=== PATIENT | female | born 1955 | race Caucasian/White ===

== ENCOUNTER 2024-03-15 06:46 | Emergency (ER) | payer MEDICARE, OTHER, SELFPAY ==
[2024-03-15 06:48] VITALS: BP 106/66
[2024-03-15 08:00] VITALS: BP 103/59
[2024-03-15 08:16] LABS: % Basophils 0.4 % (0-2); % Eosinophils 0.6 % (0-6); % Immature Granulocytes 0.7 % (0-0.5); % Lymphocytes 7.8 % (20.5-51.1); % Monocytes 5.9 % (1.7-9.3); % Neutrophils 84.6 % (42.2-75.2); Absolute Basophils 0.1 10^3/uL (0-0.2); Absolute Eosinophils 0.1 10^3/uL (0-0.7); Absolute Immature Granulocytes 0.1 10^3/uL (0-0.05); Absolute Lymphocytes 0.9 10^3/uL (1.2-3.4); Absolute Monocytes 0.7 10^3/uL (0.1-0.6); Absolute Neutrophils 10.3 10^3/uL (1.4-6.5); Hematocrit 34.4 % (37.0-47.0); Hemoglobin 11.7 g/dL (12.0-16.0); Mean Corpuscular Volume 85.1 fL (81.0-99.0); Mean Platelet Volume 9.8 fL (7.4-10.4); Nucleated Red Blood Cells % 0 %; Platelet Count 359 10^3/uL (130-400); Red Blood Cell Count 4.04 10^6/uL (4.20-5.40); Red Cell Dist. Width 13.6 % (11.5-14.5); White Blood Cell Count 12.1 10^3/uL (4.8-10.8)
--- NOTE | 2024-03-15 08:21 | ED.GENMED ---
History of Present Illness
General
Chief Complaint: Breathing Problem
Time Seen by Provider: 03/15/24 07:27
History of Present Illness
History of Present Illness:
69-year-old female without significant past medical history presenting to the emergency department for persistent cough. Patient reports 2 weeks ago she contracted an upper respiratory virus. She was seen by her primary care doctor, tested
negative for COVID and flu and started a steroid pack. At that time she was having cough and fever, fatigue. Reports that the fever resolved, however in the past week since the infection, has had persistent cough and fatigue. She notes in the
past few days she has been coming increasingly dyspneic, felt that she is wheezing. Denies any additional fevers. Denies chest pain. Denies abdominal pain or GI symptoms. Denies additional acute medical complaints
Past History
Past History
ED Past Medical History: Other (Migraines); Negative Asthma, CAD, HTN or Hypercholesterolemia
ED Past Surgical History: Gynecological and Orthopedic
Social History
Tobacco: Non-smoker
Alcohol: Occasional
Drug: None
Personal:
Employment: Employed
Family History
Family History: Early CAD and Other
Phy Exam
Physical Exam
Physical Exam:
General: Well-appearing, no clinical signs of dehydration, nontoxic and in no acute distress
HEENT: protecting airway
Neck: appears supple
CV: Normal heart rate, regular rhythm, no evidence of cyanosis
Resp: No accessory muscle use, no increased work of breathing, lungs clear to auscultation bilaterally
Abd: Soft and non-distended, no tenderness to palpation
Extremities: No deformities, no swelling
Neuro: alert, no focal neurologic deficit
: deferred
Rectal: deferred
Psych: Normal affect
Skin: Intact
Scores
Heart Failure Risk
Heart Failure Risk Score: Not Applicable
Course
Orders/Labs/Results
Orders:
Orders
03/15/24 07:56
CR Chest - 2 Views Urgent
Comment:
Reason For Exam: SOB, cough x 2 weeks
03/15/24 08:00
COVID-19 Antigen Urgent
Source: Nasal Swab
Complete Blood Count/With Diff Urgent
Comprehensive Metabolic Panel Urgent
Influenza A+B Rapid Molecular Urgent
LENIN Source: Nasal Swab
Specimen Description:
03/15/24 09:39
Doxycycline [Vibramycin] 100 mg PO NOW STA
Abnormal Lab Results
03/15/24
08:00
WBC 12.1 H 10^3/uL
(4.8-10.8)
RBC 4.04 L 10^6/uL
(4.20-5.40)
Hgb 11.7 L g/dL
(12.0-16.0)
Hct 34.4 L %
(37.0-47.0)
Abs Immat Gran (auto) 0.1 H 10^3/uL
(0-0.05)
Absolute Neuts (auto) 10.3 H 10^3/uL
(1.4-6.5)
Absolute Lymphs (auto) 0.9 L 10^3/uL
(1.2-3.4)
Absolute Monos (auto) 0.7 H 10^3/uL
(0.1-0.6)
Immature Gran % 0.7 H %
(0-0.5)
Neutrophils % 84.6 H %
(42.2-75.2)
Lymphocytes % 7.8 L %
(20.5-51.1)
Glucose 103 H mg/dl
(70-99)
03/15/24 08:00
03/15/24 08:00
Vital Signs
Initial and Last Documented VS:
Initial Vital Signs
Temp Pulse Resp BP Pulse Ox
98.2 F 100 24 106/66 96
03/15/24 06:48 03/15/24 06:48 03/15/24 06:48 03/15/24 06:48 03/15/24 06:48
Last Documented Vital Signs
Temp Pulse Resp BP Pulse Ox
98.5 F 78 24 103/59 95
03/15/24 08:23 03/15/24 08:45 03/15/24 08:45 03/15/24 08:23 03/15/24 08:45
MDM/Problems Addressed
MDM/Problems Addressed:
69-year-old female presenting to the emergency department for persistent cough with shortness of breath. Vital signs on arrival are normal.
On exam, patient is resting comfortably, no acute respiratory distress. Overall benign examination. Suspect likely residual postviral cough versus superimposed pneumonia versus additional viral infection. Will plan for laboratory analysis, chest
x-ray imaging, viral swabs.
09:40 -chest x-ray is consistent with a lingula pneumonia. Blood work shows mild leukocytosis, consistent with infection. Patient otherwise remained stable from respiratory standpoint. Will start patient on antibiotics. Otherwise feel stable for
discharge with close outpatient primary care follow-up. Strict return precautions communicated and patient verbalized understanding.
*Critical Care Note
Total Time (30-74mins, 75-104mins- exclusive of procedures): Not Applicable
ED Attending Note
-
Portions of this chart may have been created with voice recognition software.� Occasional wrong word or��sound alike� substitutions may have occurred due to the inherent limitations of voice recognition software.
Discharge Plan
Departure
Patient Disposition: Home (Routine Discharge)
Date of Disposition: 03/15/24
Time of Disposition: 09:40
Patient with high blood pressure during this ER visit?: No
Condition: Good
Discharge Problem:
Lingular pneumonia
Instructions: Pneumonia in adults, Shortness of Breath (Dyspnea) (DC)
Prescriptions:
New
doxycycline hyclate 100 mg capsule
100 mg PO BID 7 Days Qty: 14 0RF
benzonatate 100 mg capsule
100 mg PO BID PRN (Reason: Cough) 5 Days Qty: 10 0RF
No Action
therapeutic multivitamin Tablet
1 tab PO DAILY
ibuprofen 200 mg Tablet
400 mg PO Q6H PRN (Reason: mild pain)
rosuvastatin 10 mg Tablet
10 mg PO HS
acetaminophen [Tylenol] 325 mg Tablet
650 mg PO Q4H PRN (Reason: pain)
Referrals:
Zulma Murphy PA-C [Family Provider] -
Activity Restrictions/Additional Instructions:
You were seen in the emergency department for cough and shortness of breath
You were found to have a right-sided pneumonia. You were started on antibiotics. Please take as prescribed.
Please follow-up closely with your primary care physician.
Return to the emergency department for any worsening of your symptoms, or any development of chest pain, difficulty breathing, abdominal pain with persistent vomiting and inability to tolerate food or liquid by mouth (concern for dehydration),
weakness, headache or confusion, fever greater than 100.4, or any additional symptoms that are concerning to you.
Thank you for choosing [facility].
Interventions
Interventions:
*Risk Screen - Suicide Last Done: 03/15/24 06:48
*General Assessment Last Done: 03/15/24 08:23
*Neglect/Abuse Screening Last Done: 03/15/24 06:48
ED- Fall Risk Assessment Last Done: 03/15/24 08:23
*ED COVID-19 Vaccine History Last Done: 03/15/24 08:23
*Nursing Disposition Last Done: 03/15/24 09:59
ED- Cardiac Assessment Last Done: 03/15/24 08:23
ED- Pulmonary Assessment Last Done: 03/15/24 08:23
Discharge Date and Time
Discharge Date/Time: 03/15/24 10:04
Print Language: YI
[2024-03-15 08:23] VITALS: BP 103/59
[2024-03-15 08:29] LABS: ALT (SGPT) 17 U/L (0-35); AST (SGOT) 19 U/L (14-36); Albumin 3.9 g/dl (3.5-5.0); Alkaline Phosphatase 87 U/L (38-126); Blood Urea Nitrogen 16 mg/dl (7-17); Calcium 9.2 mg/dl (8.4-10.2); Carbon Dioxide 23 mmol/L (22-30); Chloride 103 mmol/L (98-107); Glucose 103 mg/dl (70-99); Potassium 4.2 mmol/L (3.5-5.1); Sodium 138 mmol/L (135-145); Total Bilirubin 0.7 mg/dl (0.2-1.3); Total Protein 6.6 g/dl (6.3-8.2); eGFR > 60.00
[2024-03-15 08:31] LABS: COVID-19 Antigen Negative (Negative)
[2024-03-15] MEDS: VIBRAMYCIN 100 MG PO (10:00)
== END 2024-03-15 10:04 | disposition home or self-care (01) ==
LOC: EMR 06:46
PROVIDERS: EMERGENCY PHYSICIAN Student in an Organized Health Care Education/Training Program; FAMILY PHYSICIAN Physician Assistant Medical
DX: J18.9 Pneumonia, unspecified organism (principal)
CPT/HCPCS: 99284; 71046; 80053; 85025; 87502; 87811

== ENCOUNTER 2024-03-20 10:33 | Emergency (ER) | payer MEDICARE, OTHER, SELFPAY ==
[2024-03-20 10:37] VITALS: BP 100/71
--- NOTE | 2024-03-20 11:47 | ED.GENMED ---
History of Present Illness
General
Chief Complaint: Breathing Problem
Time Seen by Provider: 03/20/24 11:09
History of Present Illness
History of Present Illness:
Patient is a 69-year-old woman with history of hypertension, hyperlipidemia, diverticulitis complicated with an abscess presenting to the emergency department with shortness of breath. Per chart review patient was seen in the emergency department
on 1023 and diagnosed with pneumonia. Patient states that initially she did get better however 2 days ago developed worsening symptoms with shortness of breath cough muscle aches as well as some lower back pain and abdominal pain. She also states
she has been eating a little less. No nausea vomiting. No changes in her bowel movement. She did take her doxycycline as prescribed. She does state that last time she started develop lower back pain but the belly pain it was her diverticulitis.
No fevers or chills. No leg swelling hemoptysis long car rides or plane rides or history of blood clot.
Past History
Past History
ED Past Medical History: Other (Migraines); Negative Asthma, CAD, HTN or Hypercholesterolemia
ED Past Surgical History: Gynecological and Orthopedic
Social History
Tobacco: Non-smoker
Alcohol: Occasional
Drug: None
Personal:
Employment: Employed
Family History
Family History: Early CAD and Other
Phy Exam
Physical Exam
Physical Exam:
GENERAL: in no acute distress
HEENT: normocephalic, extraocular movements intact, moist oral mucosa
NECK: normal inspection
RESPIRATORY: no respiratory distress, clear to auscultation bilaterally
CARDIOVASCULAR: regular rate and rhythm
ABDOMEN/: soft, non-distended, mild left-sided abdominal tenderness, no rebound or guarding
EXTREMITIES: non-tender, no edema/swelling
NEUROLOGIC: awake and alert, moves all extremities
SKIN: warm
Scores
Heart Failure Risk
Heart Failure Risk Score: Not Applicable
Course
Orders/Labs/Results
Orders:
Orders
03/20/24 10:40
Electrocardiogram (*1) Urgent
Reason for Study: Other
Other Reason for Exam: left arm pain
EKG- Treatment ONCE
03/20/24 11:35
CT Abd/pelvis W Iv Cont Urgent
Comment:
Reason For Exam: llq pain, hx diverticulitis with absces
CR Chest - 2 Views Urgent
Comment:
Reason For Exam: cough, sob
03/20/24 11:46
Complete Blood Count/With Diff Urgent
Comprehensive Metabolic Panel Urgent
Abnormal Lab Results
03/20/24
11:46
RBC 4.03 L 10^6/uL
(4.20-5.40)
Hct 35.7 L %
(37.0-47.0)
Neutrophils % 75.8 H %
(42.2-75.2)
Lymphocytes % 15.7 L %
(20.5-51.1)
Glucose 139 H mg/dl
(70-99)
03/20/24 11:46
03/20/24 11:46
Vital Signs
Initial and Last Documented VS:
Initial Vital Signs
Temp Pulse Resp BP Pulse Ox
98.1 F 73 16 100/71 98
03/20/24 10:37 03/20/24 10:37 03/20/24 10:37 03/20/24 10:37 03/20/24 10:37
Last Documented Vital Signs
Temp Pulse Resp BP Pulse Ox
98.1 F 76 19 124/62 98
03/20/24 10:37 03/20/24 13:15 03/20/24 13:15 03/20/24 13:00 03/20/24 10:37
MDM/Problems Addressed
Differential Diagnosis Includes:
Patient is a 69-year-old woman with recent diagnosis of pneumonia presenting to the emergency department with worsening shortness of breath cough muscle aches as well as new onset lower back pain and left-sided abdominal pain. Vitals are
unremarkable and exam does show mild tenderness to the left side of the abdomen. Differential consists of pneumonia versus viral syndrome versus diverticulitis or metabolic derangement. Will check blood work chest x-ray. After shared decision
making we will obtain CT scan to evaluate for diverticulitis/any complications of that.
*Critical Care Note
Total Time (30-74mins, 75-104mins- exclusive of procedures): Not Applicable
Update Note
Update Note:
Blood work does show a resolving leuk cytosis. Chest x-ray per my interpretation with persistent pneumonia. It is not worsening which is reassuring. Given her symptoms we will add on cefpodoxime to help treat the pneumonia. CT scan of the
abdomen without diverticulitis. She does have some possibly mild proctitis on exam. Patient is asymptomatic at this time. She is following up with her PCP in a few days. Strict return precautions given. Will discharge at this time
ED Attending Note
-
Portions of this chart may have been created with voice recognition software.� Occasional wrong word or��sound alike� substitutions may have occurred due to the inherent limitations of voice recognition software.
Discharge Plan
Departure
Patient Disposition: Home (Routine Discharge)
Date of Disposition: 03/20/24
Time of Disposition: 14:37
Patient with high blood pressure during this ER visit?: No
Discharge Problem:
Pneumonia
Prescriptions:
New
cefpodoxime 200 mg tablet
200 mg PO BID 5 Days Qty: 10 0RF
No Action
therapeutic multivitamin Tablet
1 tab PO DAILY
ibuprofen 200 mg Tablet
400 mg PO Q6H PRN (Reason: mild pain)
rosuvastatin 10 mg Tablet
10 mg PO HS
acetaminophen [Tylenol] 325 mg Tablet
650 mg PO Q4H PRN (Reason: pain)
doxycycline hyclate 100 mg capsule
100 mg PO BID 7 Days Qty: 14 0RF
benzonatate 100 mg capsule
100 mg PO BID PRN (Reason: Cough) 5 Days Qty: 10 0RF
Referrals:
Zulma Murphy PA-C [Family Provider] -
Activity Restrictions/Additional Instructions:
You were seen in the Emergency Department today for shortness of breath. While you were here we performed blood work, which was reassuring. I did start you on antibiotic called cefpodoxime. Please take as prescribed. You may take Pepcid once a
day to help with the stomach.
We would like for you to follow up with your primary care physician for further evaluation. If you experience fever, worsening of your symptoms, or develop any other new or concerning symptoms, please return to the Emergency Department immediately.
Please see the attached sheet for additional information.
Interventions
Interventions:
*Risk Screen - Suicide Last Done: 03/20/24 10:37
*General Assessment Last Done: 03/20/24 11:08
*Neglect/Abuse Screening Last Done: 03/20/24 10:37
*ED COVID-19 Vaccine History Last Done: 03/20/24 11:08
ED- Cardiac Assessment Last Done: 03/20/24 11:08
ED- Pulmonary Assessment Last Done: 03/20/24 11:08
Discharge Date and Time
Print Language: SOMALI
[2024-03-20 11:54] LABS: % Basophils 0.4 % (0-2); % Eosinophils 0.8 % (0-6); % Immature Granulocytes 0.3 % (0-0.5); % Lymphocytes 15.7 % (20.5-51.1); % Neutrophils 75.8 % (42.2-75.2); Absolute Eosinophils 0.1 10^3/uL (0-0.7); Absolute Lymphocytes 1.2 10^3/uL (1.2-3.4); Absolute Monocytes 0.5 10^3/uL (0.1-0.6); Absolute Neutrophils 5.7 10^3/uL (1.4-6.5); Hematocrit 35.7 % (37.0-47.0); Hemoglobin 12.1 g/dL (12.0-16.0); Mean Corp Hgb Conc. 33.9 g/dL (33.0-37.0); Mean Corpuscular Volume 88.6 fL (81.0-99.0); Mean Platelet Volume 9.8 fL (7.4-10.4); Nucleated Red Blood Cells % 0 %; Platelet Count 381 10^3/uL (130-400); Red Blood Cell Count 4.03 10^6/uL (4.20-5.40); Red Cell Dist. Width 13.2 % (11.5-14.5); White Blood Cell Count 7.5 10^3/uL (4.8-10.8)
[2024-03-20 12:14] VITALS: BP 111/61
[2024-03-20 12:26] LABS: ALT (SGPT) 19 U/L (0-35); AST (SGOT) 22 U/L (14-36); Albumin 3.9 g/dl (3.5-5.0); Alkaline Phosphatase 75 U/L (38-126); Blood Urea Nitrogen 12 mg/dl (7-17); Calcium 10.2 mg/dl (8.4-10.2); Carbon Dioxide 27 mmol/L (22-30); Chloride 105 mmol/L (98-107); Glucose 139 mg/dl (70-99); Sodium 142 mmol/L (135-145); Total Bilirubin 0.4 mg/dl (0.2-1.3); Total Protein 6.8 g/dl (6.3-8.2); eGFR > 60.00
[2024-03-20 13:00] VITALS: BP 124/62
[2024-03-20 14:17] VITALS: BP 125/69
== END 2024-03-20 15:31 | disposition home or self-care (01) ==
LOC: EMR 10:33
PROVIDERS: EMERGENCY PHYSICIAN Student in an Organized Health Care Education/Training Program; FAMILY PHYSICIAN Physician Assistant Medical
DX: J18.9 Pneumonia, unspecified organism (principal); E78.5 Hyperlipidemia, unspecified; I10 Essential (primary) hypertension; Z87.19 Personal history of other diseases of the digestive system
CPT/HCPCS: 99285; 71046; 74177; 80053; 85025; 93005; Q9967

== ENCOUNTER → 2024-03-30 11:00 | Outpatient (REF) | payer MEDICARE, OTHER, SELFPAY | LOC: RAD 11:00 | PROVIDERS: ATTENDING PHYSICIAN Physician Assistant Medical | DX: J18.9 Pneumonia, unspecified organism (principal) | CPT/HCPCS: 71046 ==

== ENCOUNTER → 2024-04-08 11:11 | Outpatient (REF) | payer MEDICARE, OTHER, SELFPAY | LOC: WDC 11:11 | PROVIDERS: ATTENDING PHYSICIAN Obstetrics & Gynecology; FAMILY PHYSICIAN Physician Assistant Medical | DX: Z12.31 Encounter for screening mammogram for malignant neoplasm of breast (principal) | CPT/HCPCS: 77063; 77067 ==

== ENCOUNTER 2024-10-09 07:41 | Emergency (ER) | payer MEDICARE, OTHER, SELFPAY ==
[2024-10-09 07:50] VITALS: BP 139/72
--- NOTE | 2024-10-09 08:41 | ED.GENMED ---
History of Present Illness
<Victoria Maher [employer] - Last Filed: 10/10/24 12:14>
General
Chief Complaint: Breathing Problem
Source: patient
Exam Limitations: none
Time Seen by Provider: 10/09/24 08:40
Nursing documentation reviewed up to this point in time: agreed with
History of Present Illness
History of Present Illness:
69-year-old female with history of HLD, diverticulitis, PNA states 2 days ago while shopping she became short of breath, she went home and about 20 minutes later experienced the same shortness of breath and broke out in a sweat on her forehead. She
laid down in the past. Yesterday morning she states she had a little shortness of breath.
This morning while she was brushing her teeth she felt short of breath again and broke out in a sweat. She states the symptoms come and go.
She also states she has had more headaches than usual in the past couple of weeks. She also has dry mouth. She denies chest pain or abdominal pain. Denies fever/chills. Denies N/V/D/C. Denies UTI symptoms.
She has not had a cough, no recent travel, her has had 'a bad cold' that he is much improved now.
Past History
<Victoria Maher, [employer] - Last Filed: 10/10/24 12:14>
Past History
ED Past Medical History: Other (Migraines); Negative Asthma, CAD, HTN or Hypercholesterolemia
ED Past Surgical History: Gynecological and Orthopedic
Social History
Tobacco: Non-smoker
Alcohol: Occasional
Drug: None
Personal:
Employment: Employed
Family History
Family History: Early CAD and Other
Review of Systems
<Victoria Maher, [employer] - Last Filed: 10/10/24 12:14>
Review of Systems
Allergies reviewed?: Yes
All Other Systems: ROS reviewed and negative except as documented in HPI and ROS
Constitutional: Denies fever or chills
Respiratory: Reports trouble breathing (intermittent SOB past 2 days); Denies cough
Cardiac: Reports diaphoresis (intermittently); Denies chest pain or palpitations
ABD/GI: Denies abdominal pain, nausea, vomiting, diarrhea, constipated or anorexia
: Denies dysuria, frequency or difficulty voiding
Musculoskeletal: Reports no symptoms
Skin: Reports no symptoms
Neurological: Reports no symptoms
Phy Exam
<Victoria Maher, [employer] - Last Filed: 10/10/24 12:14>
Physical Exam
Physical Exam:
GENERAL: No acute distress. A&Ox3.
CONSTITUTIONAL: Afebrile.
EYES: clear, conjunctivae normal
ENMT: moist mucus membranes, Pharynx nl
RESPIRATORY: Regular respirations, nonlabored, lungs clear.
CARDIOVASCULAR: Regular rate and rhythm, no murmurs, no rubs.
GI: Soft, nontender
MUSCULOSKELETAL: Moves with ease. Well perfused.
SKIN: Warm, dry, pink
PSYCH: Normal mood and affect. Well kept, interactive and appropriate
NEUROLOGIC: Awake, alert and oriented. No focal neurological deficits
Scores
<Victoria Maher, [employer] - Last Filed: 10/10/24 12:14>
Heart Failure Risk
Heart Failure Risk Score: Not Applicable
Course
<Victoria V. , [employer] - Last Filed: 10/10/24 12:14>
Orders/Labs/Results
Orders:
Orders
10/09/24 07:42
Electrocardiogram (*1) Urgent
Reason for Study: Shortness of Breath
10/09/24 07:43
EKG- Treatment ONCE
10/09/24 08:52
CR Chest - 2 Views Urgent
Comment:
Reason For Exam: SOB
10/09/24 09:12
COVID-19 Antigen Urgent
Source: Nasal Swab
Complete Blood Count/With Diff Urgent
Comprehensive Metabolic Panel Urgent
NT-proBNP Urgent
Troponin I Urgent
Abnormal Lab Results
10/09/24
09:12
RBC 4.19 L 10^6/uL
(4.20-5.40)
MCHC 32.9 L g/dL
(33.0-37.0)
MPV 11.2 H fL
(7.4-10.4)
Absolute Neuts (auto) 7.5 H 10^3/uL
(1.4-6.5)
Absolute Lymphs (auto) 0.8 L 10^3/uL
(1.2-3.4)
Absolute Monos (auto) 0.7 H 10^3/uL
(0.1-0.6)
Neutrophils % 82.2 H %
(42.2-75.2)
Lymphocytes % 8.5 L %
(20.5-51.1)
Chloride 108 H mmol/L
(98-107)
Glucose 112 H mg/dl
(70-99)
10/09/24 09:12
10/09/24 09:12
Vital Signs
Initial and Last Documented VS:
Initial Vital Signs
Temp Pulse Resp BP Pulse Ox
98.5 F 73 18 139/72 100
10/09/24 07:50 10/09/24 07:50 10/09/24 07:50 10/09/24 07:50 10/09/24 07:50
Last Documented Vital Signs
Temp Pulse Resp BP Pulse Ox
98.5 F 66 19 102/48 96
10/09/24 07:50 10/09/24 10:28 10/09/24 10:28 10/09/24 11:12 10/09/24 11:19
<Kenzie Horner MD - Last Filed: 10/09/24 09:24>
Orders/Labs/Results
Orders:
Orders
10/09/24 07:42
Electrocardiogram (*1) Urgent
Reason for Study: Shortness of Breath
10/09/24 07:43
EKG- Treatment ONCE
10/09/24 08:52
CR Chest - 2 Views Urgent
Comment:
Reason For Exam: SOB
10/09/24 09:12
COVID-19 Antigen Urgent
Source: Nasal Swab
Complete Blood Count/With Diff Urgent
Comprehensive Metabolic Panel Urgent
NT-proBNP Urgent
Troponin I Urgent
Abnormal Lab Results
10/09/24
09:12
RBC 4.19 L 10^6/uL
(4.20-5.40)
MCHC 32.9 L g/dL
(33.0-37.0)
MPV 11.2 H fL
(7.4-10.4)
Absolute Neuts (auto) 7.5 H 10^3/uL
(1.4-6.5)
Absolute Lymphs (auto) 0.8 L 10^3/uL
(1.2-3.4)
Absolute Monos (auto) 0.7 H 10^3/uL
(0.1-0.6)
Neutrophils % 82.2 H %
(42.2-75.2)
Lymphocytes % 8.5 L %
(20.5-51.1)
Chloride 108 H mmol/L
(98-107)
Glucose 112 H mg/dl
(70-99)
10/09/24 09:12
10/09/24 09:12
Vital Signs
Initial and Last Documented VS:
Initial Vital Signs
Temp Pulse Resp BP Pulse Ox
98.5 F 73 18 139/72 100
10/09/24 07:50 10/09/24 07:50 10/09/24 07:50 10/09/24 07:50 10/09/24 07:50
Last Documented Vital Signs
Temp Pulse Resp BP Pulse Ox
98.5 F 66 19 102/48 96
10/09/24 07:50 10/09/24 10:28 10/09/24 10:28 10/09/24 11:12 10/09/24 11:19
<Victoria Maher [employer] - Last Filed: 10/10/24 12:14>
MDM/Problems Addressed
Differential Diagnosis Includes:
PNA, [place], CHF, Covid, viral URI
MDM/Problems Addressed:
69-year-old female with history of HLD, diverticulitis, PNA states 2 days ago while shopping she became short of breath, she went home and about 20 minutes later experienced the same shortness of breath and broke out in a sweat on her forehead. She
laid down in the past. Yesterday morning she states she had a little shortness of breath.
This morning while she was brushing her teeth she felt short of breath again and broke out in a sweat. She states the symptoms come and go.
She also states she has had more headaches than usual in the past couple of weeks. She also has dry mouth. She denies chest pain or abdominal pain. Denies fever/chills. Denies N/V/D/C. Denies UTI symptoms.
She has not had a cough, no recent travel, her has had 'a bad cold' that he is much improved now.
Afebrile, NAD
EKG: Sinus, occas. PVC's, LVH, L axis deviation
9:45 a.m.
CBC, CMP with no clinically significant abnormality.
Lipase normal
BNP normal
Troponin WNL
Covid neg
CXR reviewed, radiology report: No acute cardiopulmonary process.
Pt ambulated around POD 2 twice and maintained pulse of 98% and did not feel SOB
Stable for discharge
Instructed to f/u with cardiology and or PCP. She may simply have viral URI as had recently
<Victoria Maher NP - Last Filed: 10/10/24 12:14>
*EKG
EKG Intrepretation Date: 10/09/24
Interpretation: abnormal
Heart Rate: 87
Rate: normal
Rhythm: PVC's
[place]: left axis deviation
Interval: normal interval
QRS Pattern: normal QRS and left vent hypertrophy
Ischemia: no ischemia
*Critical Care Note
Total Time (30-74mins, 75-104mins- exclusive of procedures): Not Applicable
ED Attending Note
<Victoria Maher NP - Last Filed: 10/10/24 12:14>
-
Portions of this chart may have been created with voice recognition software.� Occasional wrong word or��sound alike� substitutions may have occurred due to the inherent limitations of voice recognition software.
<Kenzie Horner MD - Last Filed: 10/09/24 09:24>
ED Attending Note
Patient seen and examined by attending physician: Yes
I performed the substantive portion of visit, reviewed & personally made and approve the management plan that is documented in note by myself or CACHORRO.: Yes
ED Attending Note:
Patient is fully awake, alert and breathing comfortably. There is no sign of respiratory distress. Patient has no edema in extremities.
Discharge Plan
Departure
Patient Disposition: Home (Routine Discharge)
Date of Disposition: 10/09/24
Time of Disposition: 11:16
Patient with high blood pressure during this ER visit?: No
Condition: Good
Discharge Problem:
Shortness of breath
Instructions: Shortness of Breath (Dyspnea) (DC)
Prescriptions:
No Action
therapeutic multivitamin Tablet
1 tab PO DAILY
ibuprofen 200 mg Tablet
400 mg PO Q6H PRN (Reason: mild pain)
rosuvastatin 10 mg Tablet
10 mg PO HS
acetaminophen [Tylenol] 325 mg Tablet
650 mg PO Q4H PRN (Reason: pain)
doxycycline hyclate 100 mg capsule
100 mg PO BID 7 Days Qty: 14 0RF
benzonatate 100 mg capsule
100 mg PO BID PRN (Reason: Cough) 5 Days Qty: 10 0RF
cefpodoxime 200 mg tablet
200 mg PO BID 5 Days Qty: 10 0RF
Referrals:
Tirso Otto MD [Active] - Next open appointment
Zulma Murphy PA-C [Family Provider] - As needed
Activity Restrictions/Additional Instructions:
As we discussed, nothing worrisome in your exam/workup here today.
See your primary doctor for follow up if not 100 better in one week.
I have provided you with the cardiologists to call today and make next available appointment for a more thorough cardiac evaluation
Interventions
Interventions:
*Risk Screen - Suicide Last Done: 10/09/24 07:53
*General Assessment Last Done: 10/09/24 10:55
*Neglect/Abuse Screening Last Done: 10/09/24 07:53
*ED- Fall Risk Assessment Last Done: 10/09/24 11:27
*ED COVID-19 Vaccine History Last Done: 10/09/24 10:55
*Nursing Disposition Last Done: 10/09/24 11:27
ED- Cardiac Assessment Last Done: 10/09/24 09:28
ED- Pulmonary Assessment Last Done: 10/09/24 09:28
Discharge Date and Time
Discharge Date/Time: 10/09/24 11:27
Print Language: [id number]
[2024-10-09 09:35] LABS: % Basophils 0.3 % (0-2); % Eosinophils 0.7 % (0-6); % Immature Granulocytes 0.3 % (0-0.5); % Lymphocytes 8.5 % (20.5-51.1); % Neutrophils 82.2 % (42.2-75.2); Absolute Eosinophils 0.1 10^3/uL (0-0.7); Absolute Lymphocytes 0.8 10^3/uL (1.2-3.4); Absolute Monocytes 0.7 10^3/uL (0.1-0.6); Absolute Neutrophils 7.5 10^3/uL (1.4-6.5); Hemoglobin 12.5 g/dL (12.0-16.0); Mean Corp Hgb Conc. 32.9 g/dL (33.0-37.0); Mean Corpuscular Hgb 29.8 pg (27.0-31.0); Mean Corpuscular Volume 90.7 fL (81.0-99.0); Mean Platelet Volume 11.2 fL (7.4-10.4); Nucleated Red Blood Cells % 0 %; Platelet Count 248 10^3/uL (130-400); Red Blood Cell Count 4.19 10^6/uL (4.20-5.40); Red Cell Dist. Width 13.7 % (11.5-14.5); White Blood Cell Count 9.1 10^3/uL (4.8-10.8)
[2024-10-09 09:42] LABS: ALT (SGPT) 17 U/L (0-35); AST (SGOT) 19 U/L (14-36); Albumin 4.5 g/dl (3.5-5.0); Alkaline Phosphatase 80 U/L (38-126); Blood Urea Nitrogen 13 mg/dl (7-17); Calcium 9.7 mg/dl (8.4-10.2); Carbon Dioxide 28 mmol/L (22-30); Chloride 108 mmol/L (98-107); Glucose 112 mg/dl (70-99); Potassium 4.2 mmol/L (3.5-5.1); Sodium 141 mmol/L (135-145); Total Bilirubin 0.9 mg/dl (0.2-1.3); Total Protein 7.2 g/dl (6.3-8.2); eGFR > 60.00
[2024-10-09 09:50] LABS: COVID-19 Antigen Negative (Negative); NT-proBNP 313 pg/ml; Troponin I < 0.012 ng/ml
[2024-10-09 11:12] VITALS: BP 102/48
== END 2024-10-09 11:27 | disposition home or self-care (01) ==
LOC: EMR 07:41
PROVIDERS: Registered Nurse; EMERGENCY PHYSICIAN Emergency Medicine; FAMILY PHYSICIAN Physician Assistant Medical
DX: R06.02 Shortness of breath (principal); R68.2 Dry mouth, unspecified; E78.5 Hyperlipidemia, unspecified; I49.3 Ventricular premature depolarization
CPT/HCPCS: 99285; 71046; 80053; 83880; 84484; 85025; 87811; 93005

== ENCOUNTER → 2025-03-27 11:24 | Outpatient (REF) | payer MEDICARE, OTHER, SELFPAY | LOC: RAD 11:24 | PROVIDERS: ATTENDING PHYSICIAN Physician Assistant | DX: R10.32 Left lower quadrant pain (principal) | CPT/HCPCS: 74177; Q9967 ==

== ENCOUNTER → 2025-04-14 10:57 | Outpatient (REF) | payer MEDICARE, OTHER, SELFPAY | LOC: WDC 10:57 | PROVIDERS: ATTENDING PHYSICIAN Physician Assistant Medical | DX: Z12.31 Encounter for screening mammogram for malignant neoplasm of breast (principal) | CPT/HCPCS: 77063; 77067 ==